=== PATIENT | male | born 1935 | race Caucasian/White ===

== ENCOUNTER 2018-06-30 13:57 | Outpatient (CLI) | payer OTHER | END 2018-06-30 14:10 | disposition home or self-care (01) | LOC: RAD 13:57 | DX: R33.8 Other retention of urine (principal); N40.1 Benign prostatic hyperplasia with lower urinary tract symptoms; R31.0 Gross hematuria ==

== ENCOUNTER 2018-08-18 08:39 | Outpatient (CLI) | payer OTHER | END 2018-08-18 08:43 | disposition home or self-care (01) | LOC: LAB 08:39 | DX: C25.0 Malignant neoplasm of head of pancreas (principal); Z51.11 Encounter for antineoplastic chemotherapy ==